=== PATIENT | female | born 1995 | race Asian ===

== ENCOUNTER → 2017-07-21 | Outpatient (CLI) | payer OTHER ==
[~2017-07-21] MED LIST: ACET-1256 PO; BCPILLS PO
--- NOTE | 2017-07-21 10:11 | DIAGNOSTIC IMAGING REPORT ---
RIGHT ANKLE MIN 3 VIEWS ROUTINE CLINICAL HISTORY: 22 years-old Female presenting with ANKLE PAIN Right. TECHNIQUE: Frontal, mortise, and lateral views of the right ankle were obtained. COMPARISON: None. FINDINGS: Ankle mortise intact. No acute fracture or malalignment. Mild diffuse soft tissue swelling suggested. No significant degenerative change. Os peroneum noted. IMPRESSION: No acute osseous injury of the right ankle. Electronically signed by: Mario Mota M.D. 07/21/2017 10:10 AM Dictated Date/Time: 07/21/2017 10:09 AM
== END | disposition home or self-care (01) ==
LOC: C.LAB 09:47
PROVIDERS: ATTEND Family Medicine
DX: M25.571 Pain in right ankle and joints of right foot (principal)